=== PATIENT | female | born 1945 | race Caucasian/White ===

== ENCOUNTER 2019-04-24 16:58 | Inpatient (IN) | payer OTHER, BC ==
[~2019-04-24] VITALS: Ht 165.1 cm; Wt 86.4 kg
[2019-04-24 17:29] LABS: RDW 13.5 % (10.5-14.5)
[2019-04-24 17:33] LABS: HEMOGLOBIN 13.2 gm/dL (12.0-15.0); MCH 29.6 pg (26.0-34.0); MCHC 33.1 g/dL (28.0-37.0); MCV 89.5 fL (80.0-100.0); RBC 4.47 mil/uL (4.20-5.00)
[2019-04-24 17:37] LABS: ANION GAP 11 mmol/L (7-16); BUN 23 mg/dL (7-18); CALCIUM 10.3 mg/dL (8.5-10.1); CHLORIDE 97 mmol/L (98-107); CO2 26 mmol/L (21-32); CREATININE 1.1 mg/dL (0.6-1.0); GLUCOSE 240 mg/dL (74-106); SODIUM 134 mmol/L (136-145)
[2019-04-24 17:39] LABS: POTASSIUM 3.9 mmol/L (3.5-5.1)
[2019-04-24 17:42] LABS: APTT 25.4 Seconds (24.5-32.8)
[2019-04-24 17:46] LABS: SGOT 48 U/L (15-37); SGPT 131 U/L (30-65); TOTAL BILIRUBIN 0.3 mg/dL (<0.1-1.0); TOTAL PROTEIN 7.7 g/dL (6.4-8.2); TROPONIN-I <0.06 ng/mL (<0.06)
[2019-04-24 18:16] LABS: PLATELET COUNT 260 thou/uL (150-400); WBC 10.9 thou/uL (4.0-11.0)
[2019-04-24 18:18] LABS: ABSOLUTE NEUTROPHILS 5.7 thou/uL (1.4-8.2); ANISOCYTOSIS 1+
[2019-04-24] MEDS ORDERED: PAXIL40 MG PO (18:38)
[2019-04-24] MEDS ORDERED: CARVEDILOL25 MG PO (18:38)
[2019-04-24] MEDS ORDERED: NORVASC5 MG PO (18:38)
[2019-04-24] MEDS ORDERED: METFORMIN HCL1000 MG PO (18:38)
[2019-04-24] MEDS ORDERED: LEVEMIR FL100 UNIT/2 SUBQ (18:39)
[2019-04-24] MEDS ORDERED: KETOCONAZOLE15 GM TOP (18:39)
[2019-04-24] MEDS ORDERED: OXYBUTYNIN CHLOR5 M1 PO (18:45)
[2019-04-24] MEDS ORDERED: SYNTHROID150 MCG PO (18:45)
[2019-04-24] MEDS ORDERED: LOSARTAN POTAS100 MG PO (18:45)
[2019-04-24] MEDS ORDERED: DILTIAZEM ER420 MG PO (18:46)
[2019-04-24] MEDS ORDERED: PANTOPRAZOLE SO40 M1 PO (18:46)
[2019-04-24] MEDS ORDERED: VITAMIN D350000 UNIT PO (18:46)
[2019-04-24 19:10] LABS: URINE BILIRUBIN NEGATIVE (Negative); URINE BLOOD NEGATIVE (Negative); URINE CLARITY CLOUDY; URINE COLOR YELLOW; URINE GLUCOSE-RANDOM* NEGATIVE (Negative); URINE KETONES NEGATIVE (Negative); URINE NITRITE-REFLEX NEGATIVE (Negative); URINE PROTEIN (DIPSTICK) TRACE (Negative); URINE SPECIFIC GRAVITY 1.025 (1.005-1.035); URINE UROBILINOGEN 0.2 E.U./dl (0.2-1.0)
[2019-04-24 19:12] LABS: URINE LEUKOCYTES-REFLEX 2+ (Negative)
[2019-04-24 19:13] LABS: URINE WBC-REFLEX >25 Many /HPF (0-5)
[2019-04-24 19:14] LABS: BACTERIA-REFLEX >30 Many /HPF (None Seen); CASTS None Seen /LPF (None Seen); CRYSTALS None Seen /LPF (None Seen); SQUAMOUS 0-3 Few /LPF (0-3); URINE RBC None Seen /HPF (0-2)
[2019-04-24 20:26] VITALS: BP 164/66
[2019-04-24 21:22] VITALS: BP 171/68
[2019-04-24 21:44] VITALS: BP 169/66
[2019-04-24] MEDS ORDERED: NOVOLOG100 UNIT/M SUBQ (22:31)
[2019-04-24 23:56] VITALS: BP 158/61
--- NOTE | 2019-04-25 04:21 | NUR ---
ADMIT NOTE:. PT ARRIVED ON UNIT AT 2130. ALERT AND ORIENTED. DENIES PAIN NAUSEA AND VOMITING. ROOM ORIENTATION COMPLETED. PT REFUSED TO SIGN ANY PAPERWORK STATING," I WILL BE ABLE TO SEE BETTER TOMORROW.". PT HAS LEFT SIDED WEAKNESS, S/P STROKE. NOTED SOME SLURRED SPEECH, LEFT SIDE FACIAL DROOP BUT SHE REPORT TO BE HER NEW NORMAL SINCE THE STROKE. ELEVATED BP COMMINICATED TO MACHINING MANAGER. NO NW ORDERES RECEIVDED. WILL CONTINUE TO FOLLOW POC.
[2019-04-25 05:01] VITALS: BP 182/78
--- NOTE | 2019-04-25 07:34 | EKG ---
[address] [address] ELECTROCARDIOGRAM REPORT Name: CHANDANA VILLALOBOS Room #: 200-I ADM IN .R.#: [id number] Admission: 04/24/19 Attend Phys: Jelani Angelo MD Discharge: Date of : 47 Report #: [id number] THIS REPORT FOR: //name// [facility] ED Test Date: 2019-04-24 Test Time: 17:22:17 Pat Name: CHANDANA VILLALOBOS Department: Room: 200 Gender: F Pin Setter: JARAD Hillman : 1945 Requested By: Goldy Young Order Number: [id number] MD: Yoni Sanchez Measurements Intervals [place] Rate: 65 P: 57 TN: 211 QRS: 41 QRSD: 94 T: 58 QT: 435 QTc: 453 Interpretive Statements Sinus rhythm Nonspecific T wave abnormality No previous ECG available for comparison Electronically Signed On 04-25-2019 7:34:34 BEEF [employer]ARM MANAGER by Yoni Sanchez [email or web address] <ELECTRONICALLY SIGNED> By: Yoni Sanchez MD, MERGED WITH [facility] 04/25/19 0734 [id number] Yoni Sanchez MD, FACC /EPI
[2019-04-25 08:00] VITALS: BP 172/82
[2019-04-25 12:00] VITALS: BP 179/79
--- NOTE | 2019-04-25 15:13 | NUR ---
Attempted to meet with patient but rec care. Sp with spouse outside of room. Patient and spouse 31 years today their anniversary. Pateint with 3 sons from a prev marriage. Spouse with dtr who is RN at [employer]. Spouse reports on Jan 24 patient had a stroke she was at [facility] and sent to [facility]. Spouse reports terrible stay at care home. She was dc home for a short time. She complained of a headache and spouse reports concern for new stroke so he brought her to [facility]. She dc [facility]. [place] they told him she could do more than he believed she could do with her adls. He also was concerned with their medications at [facility]. he reports they were giving her "Milk of magnesium which is a diuretic and depleted her." She went home from [facility] and reports she was not doing as well. he called [facility] Rehab who he states told him she must of digressed. Discussed post acute care. Reviewed pvt dty at home and coverage. Discussed skilled rehab vs acute rehab and need for new diagnosis for acute rehab as well as tolerate 3 hours of therapy. Gave spouse a Preferred care skilled list to review. 5N consult to determine if candidate for 5N. [facility] aasisting for dc planning.
[2019-04-25 16:00] VITALS: BP 189/81
--- NOTE | 2019-04-25 17:56 | NUR ---
ASSESSMENT CHARTED. PT ALERT AND ORIENTED. HAD HIGH BP THIS SHIFT. DR AGUILAR NOTIFIED. ORDERS RECEIVED. PT EVALUATED BY PT/OT AND ST. DENIED HAVING PAIN OR DISCOMFORT. ORDERS NOTED. WILL CONTINUE TO MONITOR.
[2019-04-25 20:08] VITALS: BP 161/58
[2019-04-26 00:25] VITALS: BP 154/95
--- NOTE | 2019-04-26 04:33 | NUR ---
ASSUMED PT CARE AT 1900. PT WAS RESTING. PT C/O NO PAIN. PT HAS PT/OT CONSULTED TO GET DAILY ACTIVITIES IN AN POSSIBLY REHAB. PT RESTED THE NIGHT. WILL CONTINUE TO MONITOR PER POC.
[2019-04-26 05:25] LABS: CALCIUM 9.2 mg/dL (8.5-10.1); CREATININE 0.8 mg/dL (0.6-1.0); POTASSIUM 3.7 mmol/L (3.5-5.1)
[2019-04-26 05:31] LABS: HEMATOCRIT 37.4 % (37.0-47.0); HEMOGLOBIN 12.2 gm/dL (12.0-15.0); MCH 29.3 pg (26.0-34.0); MCHC 32.6 g/dL (28.0-37.0); RBC 4.16 mil/uL (4.20-5.00); RDW 13.5 % (10.5-14.5); WBC 9.8 thou/uL (4.0-11.0)
[2019-04-26 05:46] VITALS: BP 185/68
[2019-04-26 07:21] VITALS: BP 193/67
[2019-04-26 11:59] VITALS: BP 170/70
--- NOTE | 2019-04-26 12:57 | NUR ---
I have reviewed the documentation by ANAY ESCOBAR from 04/26/19 to 04/26/19 and I concur with it. BERONICA JETER
--- NOTE | 2019-04-26 15:51 | NUR ---
patient to be evaled by Gracia Gallagher with patient and spouse referral to [facility] for possible post acute care.
[2019-04-26 15:55] VITALS: BP 149/61
--- NOTE | 2019-04-26 16:32 | NUR ---
5N with waitlist requested [facility] flowers as well spouse and patient agreeable.
--- NOTE | 2019-04-26 16:58 | NUR ---
FAXED REFERRAL TO [facility] SPOKE WITH CHERRI IN ADM SHE RECEIVED REFERRAL AND CANNOT ACCEPT THEY HAVE NO FEMALE BEDS FOR AWHILE. FAXED REFERRAL TO [facility] AT [facility] RECEIVED CONFIRMATION AND LEFT MSG WITH ADM. FAXED REFERRAL TO [facility] SPOKE WITH DEBORAH IN ADM SHE RECEIVED REFERRAL AND WILL REVIEW. DP TO FOLLOW.
--- NOTE | 2019-04-26 18:01 | NUR ---
ASSUMED CARE 0700. ALERT X4, DENIES PAIN, BP MANAGED WITH MEDICATIONS, MAX ASSIST WITH TRANSFERS. UP TO CHAIR. ENCOURAGED BEDSIDE COMMED WHILE IN CHAIR. PREFERS EXTERNAL FEMALE CATHETER FOR INCONITENCE. WILL DC TO REHAB/SNF WHEN STABLE. BEDSIDE AT THIS TIME. FALL PRECATIONS REMAIN IN PLACE.
[2019-04-26 19:27] VITALS: BP 167/55
[2019-04-27 03:20] VITALS: BP 180/63
--- NOTE | 2019-04-27 05:14 | NUR ---
ASSUMED PT CARE AT 1900. PT WAS ALERT WITH NO C/O PAIN, SOB, OR N/V/D. PT WAS UP TO CHAIR TO FOLLOW POC. PT SLEPT THRU NIGHT WITH NO CONCERNS. WILL CONTINUE TO MONITOR PT PER POC.
[2019-04-27 07:00] VITALS: BP 174/63
[2019-04-27] MEDS ORDERED: CEFUROXIME250 MG PO (10:27)
[2019-04-27] MEDS ORDERED: CARDIZEM CD120 MG PO (10:27)
[2019-04-27] MEDS ORDERED: ASPIRIN325 PO (10:27)
--- NOTE | 2019-04-27 10:46 | NUR ---
FAXED REFERRAL TO [facility] SPOKE WITH [facility] IN INTAKE SHE CAN ACCEPT. PT TO DC TODAY.
[2019-04-27 10:53] VITALS: BP 174/63
[2019-04-27 11:35] VITALS: BP 170/73
--- NOTE | 2019-04-27 12:10 | NUR ---
Although [facility] accepting of patient spouse and patient report they want to dc home with HH. Prev rec [facility]. Faxed refeerral for HH and they are accepting. Spouse reports he doesnt want patient going to another facility she has been in/out of facilities. Gave resources for pvt dty and skilled rehab as needed. Plan home with spouse.
--- NOTE | 2019-04-27 12:20 | NUR ---
I have reviewed the documentation by ANAY ESCOBAR from 04/27/19 TO 04/27/19 and I concur with it. BERONICA JETER
--- NOTE | 2019-04-27 15:36 | NUR ---
Spouse concerned with transport home via car. Arranged [facility] van and vouched as he was concerned with pricing. [facility] for 1530 dc home today [facility].
--- NOTE | 2019-04-27 16:30 | NUR ---
ASSESSMENT CHARTED. PT ALERT AND ORIENTED. VSS. DENIED HAVING PAIN OR DISCOMFORT. ORDERS GIVEN TO DISCHARGE PT WITH HH. DISCHARGE INSTRUCTIONS GIVEN TO PT. PT VERBERLISED UNDERSTANDING. PT LEFT THE FACILITY ACCOMPANIED BY THE .
== END 2019-04-27 16:38 | disposition home or self-care (01) | DRG 690 ==
LOC: ER 16:58 → 2N 19:41 → EROBS 19:41 → 2N 21:24
PROVIDERS: Emergency Medicine; Nurse Practitioner Acute Care; ADMIT Hospitalist
DX: N39.0 Urinary tract infection, site not specified (principal); N17.9 Acute kidney failure, unspecified; E44.0 Moderate protein-calorie malnutrition; I69.354 Hemiplegia and hemiparesis following cerebral infarction affecting left non-dominant side; R29.818 Other symptoms and signs involving the nervous system; E03.9 Hypothyroidism, unspecified; E11.9 Type 2 diabetes mellitus without complications; I10 Essential (primary) hypertension; R74.0 Nonspecific elevation of levels of transaminase and lactic acid dehydrogenase [LDH]; E86.0 Dehydration; Z79.82 Long term (current) use of aspirin; Z79.899 Other long term (current) drug therapy; Z85.3 Personal history of malignant neoplasm of breast; Z90.81 Acquired absence of spleen; Z82.49 Family history of ischemic heart disease and other diseases of the circulatory system; Z68.31 Body mass index [BMI] 31.0-31.9, adult
CPT/HCPCS: 10081